=== PATIENT | female | born 1950 | race Hispanic/Latino ===

== ENCOUNTER 2017-10-11 21:00 | Emergency (ER) | payer MEDICARE ==
[~2017-10-11] VITALS: Ht 149.9 cm; Wt 57.2 kg
[2017-10-11 23:33] VITALS: BP 151/88
== END 2017-10-11 23:38 | disposition home or self-care (01) ==
LOC: ER 21:00
DX: I10 Essential (primary) hypertension (principal)
CPT/HCPCS: 99282